=== PATIENT | male | born 1995 | race Caucasian/White ===

== ENCOUNTER 2018-12-30 05:54 | Emergency (ER) | payer MEDICAID ==
[~2018-12-30] VITALS: Ht 185.4 cm; Wt 75.3 kg
--- NOTE | 2018-12-30 06:30 | NUR ---
BIBSELF. WALKED IN TO ER. AAOX4. NAD NOTED, BREATHING EVEN AND UNLABORED. AMBULATORY. C/O SUICIDAL IDEATION PLAN TO CUT HIS THROAT WITH A KNIFE. DENIES HI. DENIES HALLUCINATIONS. PT ALSO REPORTS WITHDRAWING FROM [facility] AND HEROIN LAST USE REPORTED WAS 4 HOURS AGO. TO ER BED 12. AWAITING ORDER.
--- NOTE | 2018-12-30 06:32 | NUR ---
PT PLACED ON SUICIDAL PRECAUTION. PT STRIPPED OFF CLOTHES AND BELONGINGS, PLACED UNDER THE SINK AT NURSING STATION. PT ALSO WANDED.
[2018-12-30] MEDS ORDERED: ONDANSETRON 4 MG TAB.RAPDIS PO ONE (07:00)
[2018-12-30] MEDS ORDERED: CLONIDINE HCL 0.1 MG TABLET PO ONE (07:00)
[2018-12-30 07:09] LABS: BASOPHILS % (AUTO) 0.2 % (0.0-2.0); EOSINOPHILS % (AUTO) 1.2 % (0.0-6.0); HEMATOCRIT 39 % (39-51); HEMOGLOBIN 13.2 g/dL (13.5-17.5); LYMPHOCYTES % (AUTO) 50.9 % (20.0-44.0); MEAN CORPUSCULAR HGB CONC 34 g/dl (31.0-36.0); MEAN CORPUSCULAR VOLUME 86 fL (80-96); MONOCYTES # (AUTO) 0.3 /CMM (0.1-1.30); MONOCYTES % (AUTO) 8.3 % (2.0-12.0); NEUTROPHILS # (AUTO) 1.6 /CMM (1.8-8.9); NEUTROPHILS % (AUTO) 39.4 % (43.0-81.0); PLATELET COUNT (AUTO) 223 /CMM (150-450); RED BLOOD CELL COUNT(AUTO) 4.56 MIL/uL (4.5-6.0)
[2018-12-30] MEDS ORDERED: CLONIDINE HCL 0.1 MG TABLET ONE (07:09)
[2018-12-30] MEDS ORDERED: ONDANSETRON 4 MG TAB.RAPDIS ONE (07:10)
[2018-12-30] MEDS ORDERED: NAPROXEN 250 MG TABLET ONE ×2 (07:10→13:18)
[2018-12-30 07:14] LABS: APPEARANCE,URINE CLEAR (CLEAR); BILIRUBIN,URINE 1+ (NEGATIVE); BLOOD, URINE NEGATIVE Ery/uL (NEGATIVE); COLOR,URINE YELLOW (YELLOW); KETONES,URINE 1+ (NEGATIVE); LEUKOCYTE ESTERASE ,URINE NEGATIVE (NEGATIVE); NITRITE, URINE NEGATIVE (NEGATIVE); PH,URINE 6.5 (5.0-8.0); PROTEIN,URINE NEGATIVE (NEGATIVE); UGLUCOSE NEGATIVE (NEGATIVE); UROBILINOGEN,URINE 0.2 EU/dL (0.2)
[2018-12-30 07:16] LABS: CALCIUM, SERUM 8.4 mg/dL (8.5-10.1); CARBON DIOXIDE 29 mmol/L (21-32); CHLORIDE 103 mmol/L (98-107); CREATININE 0.8 mg/dL (0.6-1.3); GLUCOSE 90 mg/dL (74-106); POTASSIUM 3.6 mmol/L (3.5-5.1); SODIUM SERUM 139 mmol/L (136-145); UREA NITROGEN, BLOOD 10 mg/dL (7-18)
[2018-12-30] MEDS: NAPROXEN 500 MG TABLET PO SCH ×2 (07:18→09:00)
--- NOTE | 2018-12-30 07:22 | NUR ---
PT ENDORSED TO ELIZABETH LINDSAY RN FOR [facility]
[2018-12-30 07:24] LABS: BACTERIA,URINE Few /HPF (None Seen); RBC,URINE 0-2 /HPF (0-2); SQUAMOUS EPITHELIAL CELL,UR Rare /HPF (None Seen); WBC,URINE 0-2 /HPF (0-3)
[2018-12-30 07:24] LABS: ALANINE AMINOTRANSFERASE 73 U/L (12-78); ALBUMIN 3.6 g/dL (3.4-5.0); ALCOHOL, BLOOD < 3 mg/dL (0-0); ALKALINE PHOSPHATASE 50 U/L (46-116); ASPARTATE AMINOTRANSFERASE 54 U/L (15-37); BILIRUBIN,DIRECT 0.2 mg/dL (0.0-0.2); TOTAL PROTEIN, SERUM 6.9 g/dL (6.4-8.2)
[2018-12-30 07:25] LABS: ACETAMINOPHEN < 2 ug/ml (10-30); SALICYLATE < 2.8 mg/dL (2.8-20.0)
[2018-12-30 07:25] LABS: MUCUS,URINE Rare /LPF (None Seen)
--- NOTE | 2018-12-30 13:32 | NUR ---
NAPROXEN 500MG NOT DUE UNTIL 1900
--- NOTE | 2018-12-30 13:37 | NUR ---
MEDICALLY AND PSYCH CLEARED. DISCHARGED IN STABLE CONDITION.
[2018-12-30 13:39] VITALS: BP 124/64
== END 2018-12-30 13:40 | disposition home or self-care (01) ==
LOC: ER 05:56
DX: F15.10 Other stimulant abuse, uncomplicated (principal); R45.851 Suicidal ideations; F31.9 Bipolar disorder, unspecified; F19.10 Other psychoactive substance abuse, uncomplicated; F11.10 Opioid abuse, uncomplicated; F12.10 Cannabis abuse, uncomplicated; Z74.3 Need for continuous supervision
CPT/HCPCS: 36415; 80048; 80076; 80307; 80329; 81001; 85025; 99284; Q0162; 80305; 81000-TC; G0480